=== PATIENT | female | born 1970 | race Caucasian/White ===

== ENCOUNTER 2020-09-21 18:18 | Emergency (ER) | payer BC, SELFPAY ==
[2020-09-21 18:40] VITALS: BP 128/65; PULSE 78; RESP 18; TEMP 36.9; O2SAT 99; BMI 28.6
--- NOTE | 2020-09-21 18:54 | HMH.EDUTC ---
[facility] [place] Clinical Impression: Exposure to COVID-19 virus Disposition: Home, Self-Care Condition on Discharge: Good Instructions: Preventing the Spread of Coronavirus Discharge Instructions Additional Instructions: *Monitor Temp, Over the counter Motrin or Tylenol as directed/as needed Tylenol every 4 hours and Motrin every 6 hours (as long as your family doctor has told you that you can take it) for fever or pain. and straight to ER if unable to lower temp less than 101.0 after medication given *Warm salt water gargles may help to soothe the throat *Throat Lozenges *Warm fluids like tea with honey may help to soothe the throat *Sleep elevated *Humidifier/Vaporizer Follow up IMMEDIATELY for new or worsening symptoms or no Noticeable improvement over the next 48-72 hours. 911 for difficulty breathing or swallowing You was tested for today for COVID19 your test result should be back in the next 24-48 hours, you may call to the [facility] tomorrow to see if your test results are back however could take up to 48 hours before results are back [phone] [facility] hours are 9am-9pm You was given a handout with instructions for Self Quarantine and Self isolation for while you wait on test results and what to do if they are positive If you are positive the Health Dept will be contacting you also Referrals: Hayde Pérez [Primary Care Provider] - As needed Time of Disposition: 18:56 Medical Decision Making - Bg Inquiry Pt receiving controlled substance: No Bg was queried for this patient: No Vital Signs: 09/21/20 18:40 Temperature 98.4 F Temperature Source Oral Pulse Rate [Left Brachial] 78 Respiratory Rate 18 Blood Pressure [Left Arm] 128/65 Blood Pressure Mean [Left Arm] 86 Blood Pressure Source [Left Arm] Automatic Cuff Blood Pressure Position [Left Arm] Sitting 02 Sat by Pulse Oximetry 99 Oxygen Delivery Method Room Air Orders (Tests/Meds): ORDERS Category Date Time Status Covid-19 Nasal PCR Sendout [facility] 09/21/20 18:48 [place] [facility] [place] - General Stated complaint: Covid test Time Seen by Provider: 09/21/20 18:54 Mode of Arrival: Ambulatory Source of Information: Patient Limitations: No Limitations Description of Symptoms (Recalled from Triage Doc. by RN): PATIENT REQUESTING COVID TEST D/T EXPOSURE; DENIES SYMPTOMS HEENT Symptoms (Recalled from RN notes): No Resp Symptoms (Recalled from RN notes): No Skin Symptoms (Recalled from RN notes): No MS Symptoms (Recalled from RN notes): No Functional Status (Recalled from RN notes): WNL - History of Present Illness Provider Complaint: Patient states that she was recently exposed to COVID by family member that just gave to her grandchild and found out today that her COVID test came back and family member was positive for COVID State that they recommended that she come in and get tested - Related Data Allergies Allergy/AdvReac Type Severity Reaction Status Date / Time naproxen [From Aleve] Allergy Verified 09/21/20 18:53 - Worker's Comp Is this a Worker's Comp case?: No [facility] History - Hepatitis A Screen Drug use history?: No High risk sexual behaviors?: No History of sexually transmitted infection?: No Currently employed?: No Childcare worker?: No Do you have indoor plumbing?: Yes Do you have electricity?: Yes Attestation statement:: This patient has been screened for Hepatitis A risk factors. I have reviewed the patient's past medical history: Yes - Social History Alcohol Intake: never Occupational Status: other ROS Obtained: Yes All systems reviewed & no additional complaints, Yes Systems reviewed as appropriate & no additional complaints - Constitutional Constitutional: Reports system reviewed and no additional complaints, except as docu, Denies body ache, Denies chills, Denies fever(s), Denies headache(s) - ENT Ears, Nose, Mouth, and Throat: Reports system reviewed and no additional complaints, exce
[2020-09-21 19:06] VITALS: BP 128/65; PULSE 78; RESP 18; TEMP 36.9; O2SAT 99
[2020-09-23 09:56] LABS: Covid-19 Nasal PCR Sendout Lex NOT DETECTED
== END 2020-09-21 19:07 | disposition home or self-care (01) ==
PROVIDERS: Emergency Provider Nurse Practitioner; PCP Obstetrics & Gynecology Gynecology
DX: Z20.828 Contact with and (suspected) exposure to other viral communicable diseases (principal)
CPT/HCPCS: 99201; U0004

== ENCOUNTER → 2023-01-30 08:36 | Outpatient (POV) | payer BC, SELFPAY | PROVIDERS: Visit Provider Dermatology | DX: Z00.00 Encounter for general adult medical examination without abnormal findings (principal) ==

== ENCOUNTER → 2023-07-13 12:28 | Outpatient (CLI) | payer BC, SELFPAY ==
--- NOTE | 2023-07-13 12:39 | XR_ITS ---
FINAL REPORT CLINICAL HISTORY: foot pain FINDINGS: Left foot Three views were obtained. There is no fracture or dislocation. The joint spaces appear normal. No soft tissue abnormality is identified. There is a cyst in the medial first metatarsal measuring 7 mm. IMPRESSION: Cyst in the medial first metatarsal. Reviewed, Interpreted and Dictated by David Mccallum MD Transcribed by Brandie Zuniga Authenticated and [facility]
--- NOTE | 2023-07-13 12:39 | XR_ITS ---
FINAL REPORT CLINICAL HISTORY: foot pain, pain on lateral side and dorsal surface FINDINGS: Right foot Three views were obtained. There is no fracture or dislocation. The joint spaces appear normal. No soft tissue abnormality is identified. There is a small plantar spur. IMPRESSION: No acute process. Reviewed, Interpreted and Dictated by David Mccallum MD Transcribed by Brandie Zuniga Authenticated and [facility]
== END ==
PROVIDERS: PCP Nurse Practitioner Family; Visit Provider Nurse Practitioner Family
DX: M79.671 Pain in right foot (principal); M79.672 Pain in left foot
CPT/HCPCS: 73630

== ENCOUNTER → 2023-07-26 13:24 | Outpatient (CLI) | payer BC, SELFPAY ==
--- NOTE | 2023-07-26 13:24 | MR_ITS ---
FINAL REPORT CLINICAL HISTORY: foot pain COMPARISON: None FINDINGS: Multiplanar MR imaging of the left foot was performed without contrast. The bony structures are intact without evidence of fracture, bone bruise or marrow edema. There is a presumed subchondral cyst in the head of the first metatarsal. The flexor and extensor tendons are intact. The anterior talofibular ligament is not well seen, and is presumed torn. The musculature is intact. The plantar aponeurosis is intact. There are small tibiotalar and posterior talar joint effusions present. IMPRESSION: Presumed subchondral cyst in the head of the first metatarsal. ATFL is not well seen and presumed torn. Reviewed, Interpreted and Dictated by Luis Miguel Grewal III, MD Transcribed by Lisa Catalan Authenticated and [facility]
== END ==
PROVIDERS: PCP Nurse Practitioner Family; Visit Provider Nurse Practitioner Family
DX: M85.672 Other cyst of bone, left ankle and foot (principal); M79.672 Pain in left foot
CPT/HCPCS: 73718

== ENCOUNTER 2023-08-21 14:56 | Outpatient (RCR) | payer BC, SELFPAY ==
--- NOTE | 2023-08-21 15:58 | HMH.PTOPEV ---
PT Outpatient Evaluation Rehab PT Outpatient Evaluation Start: 08/21/23 15:43 Freq: Status: Active Protocol: Document 08/21/23 15:43 STEVE (Rec: 08/21/23 15:58 STEVE [id number]) E-signed By En Chavez, PT Outpatient Therapy Subjective History Subjective History Pt reports h/o bilateral foot pain for 'years', however, reports increase in s/s over the last couple months. Pt reports right > left medial arch area pain. 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 New diagnosis of cancer in past 12 No months? Chief Complaint Pain,Gives out/Unstable Symptom Type Ache,Dull Symptoms Relieved By Rest/Positioning,Heat Symptoms Aggravated By Standing,Physical Activity, Walking Prior Functional Limitations Housework,Stairs,Balance Current Functional Limitations Housework,Stairs,Balance Symptom Description Constant but Variable Level of pain today (0-10) 5 Pain scale - at its best (0-10) 5 Pain scale - at its worst (0-10) 8 Ankle/Foot Eval Gait Observation General Gait Pattern Observation No Deviations/Normal Assistive Device Ambulation Assistive Device None Palpation Tenderness left Ankle/Foot Palpation Findings Tenderness Ankle/Foot Palpation Overall Comment 2-3/4 medial aspect plantar fascia right Ankle/Foot Palpation Findings Tenderness Ankle/Foot Palpation Overall Comment 3/4 medial plantar fascia, 3/4 plantar fascia insertion ROM left Ankle/Foot Dorsiflexion w/Knee Extended 0-25 Active Range Motion (degrees) Ankle/Foot Plantar Flexion Active Range 0-60 of Motion (degrees) Ankle/Foot Eversion Active Range of 0-20 Motion (degrees) Ankle/Foot Inversion Active Range of 0-60 Motion (degrees) right Ankle/Foot Dorsiflexion w/Knee Extended 0-20 Active Range Motion (degrees) Ankle/Foot Plantar Flexion Active Range 0-65 of Motion (degrees) Ankle/Foot Eversion Active Range of 0-20 Motion (
== END 2023-08-21 14:59 | disposition home or self-care (01) ==
LOC: PT 14:56
PROVIDERS: PCP Nurse Practitioner Family; Visit Provider Podiatrist
DX: Q79.60 Ehlers-Danlos syndrome, unspecified (principal); M79.672 Pain in left foot; M25.375 Other instability, left foot
CPT/HCPCS: 97163

== ENCOUNTER → 2023-09-04 12:22 | Outpatient (CLI) | payer BC, SELFPAY ==
[2023-09-04 13:27] LABS: Anion Gap 11.8 mEq/L (5-15); Blood Urea Nitrogen 11 mg/dl (7-17); Calcium 9.3 mg/dl (8.4-10.2); Carbon Dioxide 27 mmol/L (22.0-30.0); Chloride 106 mmol/L (98-107); Estimated Glomerular Filt Rate 58 ml/min (>60); GFR (African American) 70 ML/MIN (>60); Glucose 101 mg/dl (74-100); Potassium 4.8 mmoL/L (3.5-5.1); Sodium 140 mmol/L (136-145)
== END ==
PROVIDERS: PCP Nurse Practitioner Family; Visit Provider Nurse Practitioner Family
DX: R79.89 Other specified abnormal findings of blood chemistry (principal)
CPT/HCPCS: 36415; 80048

== ENCOUNTER 2023-10-16 13:45 | Outpatient (RCR) | payer BC, SELFPAY ==
--- NOTE | 2023-10-16 15:55 | HMH.PTOPEV ---
PT Outpatient Evaluation Rehab PT Outpatient Evaluation Start: 10/16/23 13:53 Freq: Status: Active Protocol: Document 10/16/23 13:53 [id number] (Rec: 10/16/23 15:52 ARTHUR [id number]) E-signed By Veena Sheldon, PT Outpatient Therapy Subjective History Subjective History Pt is a 53 y/o female who reports chronic B plantar foot pain R>L with worsening of pain at the beginning of this year. Pt denies knpwn trauma or injuries to worsen pain.Pt reports R foot pain is located on the pinky side of the foot , bottom of the foot and the heel. Pt reports the L foot pain is located in the heel with minimal soreness on the bottom of the foot. Pt reports intermittent numbness/ tingling of the right toes. Pt had a L foot MRI on 07/26/23 with impression of Presumed subchondral cyst in the head of the first metatarsal. ATFL is not well seen and presumed torn. Pt reports she had xrays of both feet as well with the right foot showing a small plantar spur. Pt reports pain increases with activity and is also worse with initial steps after being sedentary such as sleeping or sitting for awhile. Pt also reports intermittent pain with stair climbing. Pt reports she wears [employer] shoes most times, denies having insoles in her shoes. Pt's reports she was given ankle braces she wears on uneven ground. Pt reports she was prescribed a compound cream she has used a couple of times without a difference in pain noted. Pt reports she uses a night splint mostly on the right foot when she watches tv at night time. Pt reports she is to return to Dr. Carlos after 3 PT treatment sessions for a follow-up visit. Medical History: Asthma- allergy induced, chronic LBP, DDD, Fibromyalgi, High cholesterol, hx of multiple ankle sprains per pt New diagnosis of cancer in past 12 No months? Chief Complaint Pain,Gives out/Unstable, Paresthesia Symptom Type Ache,Sharp,Stabbing Symptoms Relieved By Rest/Positioning,Brace/Support Symptoms Aggravated By Physical Activity,Walking Prior Functional Limitations None Current Functional Limitations Sleeping,Recreation Activity, Walking,Stairs,Balance Symptom Description Constant but Variable Level of pain today (0-10) 3 Pain scale - at its best (0-10) 3 Pain scale - at its worst (0-10) 8 Ankle/Foot Eval Gait Observation General Gait Pattern Observation No Deviations/Normal Assistive Device Ambulation Assistive Device None Palpation Tenderness bilateral Ankle/Foot Palpation Findings Tenderness Ankle/Foot Palpation Overall Comment PF insertion R>L, L achilles tendon/heel ROM left Ankle/Foot Dorsiflexion w/Knee Extended 15 Active Range Motion (degrees) Ankle/Foot Plantar Flexion Active Range 45 of Motion (degrees) Ankle/Foot Eversion Active Range of 12 Motion (degrees) Ankle/Foot Inversion Active Range of 30 Motion (degrees) right Ankle/Foot Dorsiflexion w/Knee Extended 15 Active Range Motion (degrees) Ankle/Foot Plantar Flexion Active Range 45 of Motion (degrees) Ankle/Foot Eversion Active Range of 10 Motion (degrees) Ankle/Foot Inversion Active Range of 30 Motion (degrees) MMT left Ankle Dorsiflexion Strength Grade 4 Good Ankle Plantarflexion Strength Grade 4 Good Foot Eversion Strength Grade 4 Good Foot Inversion Strength Grade 4 Good right Ankle Dorsiflexion Strength Grade 4 Good Ankle Plantarflexion Strength Grade 4 Good Foot Eversion Strength Grade 4- Good- Foot Inversion Strength Grade 4- Good- Special Tests Talar Tilt Test Negative Right,Positive Left Foot Compression Test Negative Left,Negative Right Foot/Heel Tap/Percussion Test Negative Left,Negative Right Lower Extremity Functional Index Activities Today, do you or would you have any difficulty at all with: a.Any of your usual work, housework or Moderate difficulty school activities b. Your usual hobbies, recreational or Moderate difficulty sporting activities c. Getting into or out of the bath Moderate difficulty d. Walking between rooms Moderate difficulty e. Putting on your shoes or socks A little bit of difficulty f. Squatting Moderate difficulty g. Lifting an object, like a bag of A little bit of difficulty groceries from the floor h. Performing light activities around No difficulty your home i. Performing heavy activities around Moderate difficulty your home j. Getting into or out of a car No difficulty k. Walking 2 blocks No difficulty l. Walking a mile Moderate difficulty m. Going up or down 10 stairs (about 1 Moderate difficulty flight of stairs) n. Standing for 1 hour A little bit of difficulty o. Sitting for 1 hour A little bit of difficulty p. Running on even ground Quite a bit of difficulty q. Running on uneven ground Quite a bit of difficulty r. Making sharp turns while running fast Quite a bit of difficulty s. Hopping Moderate difficulty t. Rolling over in bed A little bit of difficulty LEFI Score Lower Extremity Functional Index Score 48 Outpatient Therapy Assessment Impairments Problems/Impairmments Palpation Tenderness,Impaired Strength,Impaired Walking, Impaired Standing,Impaired Household Care,Impaired Stair Climbing,Impaired Incline Stepping,Impaired Stepping on Uneven Surface,Impaired Balance,Subjective C/O Pain, Impaired Self Care/Self Management Prognosis Rehab Potential Good Clinical Impression Consistent with Diagnosis Yes Short Term Goals Number of Weeks 3 Improve Balance Yes: Tandem stance on stable surface 30 without LOB to dec fall/injury risk Improve LEFI Score Yes: Improve score to 58/80 to improve overall QOL Decrease Subjective C/O Pain Yes: Improve pain at worst to 6/10 to improve overall QOL Improve Self Care/Self Management Yes Patient to be Ind w/ HEP Yes Retirement Goals Number of Weeks 6 Increase Strength Yes: Improve B ankle MMT to 5/ 5 grossly to assist with function Improve Ability to Climb Stairs Yes: 1 flight reciprocally with pain 4/10 or less to assist with home navigation Improve Balance Yes: Tandem stance on unstable surface 30 without LOB to dec fall/injury risk Improve LEFI Score Yes: Improve score to 68/80 to improve overall QOL Decrease Subjective C/O Pain Yes: Improve pain at worst to 4/10 to improve overall QOL Patient to be Ind w/ Advanced HEP Yes Outpatient Therapy Plan of Care Treatment Plan May Include Therapeutic Exercise Including Home Yes Exercise Program Manual Therapy Techniques Yes Neuromuscular Re-education Yes Therapeutic Activities to Return to Yes Previous Functional/Work Level Gait Training Yes ADL/Self Care Education Yes Dry Needling Yes Thermal Modalities Yes Electrical Stimulation Yes Ultrasound/Phonophoresis Yes Iontophoresis Yes Orthotics/Bracing/Splinting Yes Vasopneumatic Compression Pump Yes Massage Yes Eval/Re-Eval Yes Frequency Times per week 2 Duration Number of Weeks 4-6 Addendums This patient is a candidate for social No or vocational rehab? Patient/Guardian verbally acknowledges Yes understanding of treatment program and consents to further treatment? Patient/Guardian verbally acknowledges Yes understanding of diagnosis, prognosis and goals for treatment? Eval Complexity PT Charges 78928 - Low Complexity Shoulder/Elbow Eval Shoulder Objective Measurements Elbow Objective Measurements PHYSICIAN CERTIFICATION: I certify the specified therapy services for Meghna Elsa Bronger are required, authorized, and reviewed every 30 days.
== END 2023-10-16 14:30 | disposition home or self-care (01) ==
LOC: PT 13:45
PROVIDERS: PCP Nurse Practitioner Family; Visit Provider Podiatrist
DX: M25.371 Other instability, right ankle (principal); M25.372 Other instability, left ankle
CPT/HCPCS: 97163

== ENCOUNTER 2023-10-31 08:42 | Outpatient (RCR) | payer BC, SELFPAY ==
--- NOTE | 2023-10-31 10:03 | HMH.PTOPEV ---
PT Outpatient Evaluation Rehab PT Outpatient Evaluation Start: 10/31/23 09:52 Freq: Status: Active Protocol: Document 10/31/23 09:52 STEVE (Rec: 10/31/23 10:03 STEVE [id number]) E-signed By En Chavez, PT Outpatient Therapy Subjective History Subjective History Pt reports h/o chronic LBP with exacerbation over the last ~2 months. Pt reports right and left sided LBP with referred pain into bilateral hips and into groins. Pt reports no radicular s/s below hip level, and reports ' sometimes it feels very unstable in my back.' New diagnosis of cancer in past 12 No months? Chief Complaint Pain,Stiff,Catches/Locks, Weakness Symptom Type Ache,Throb,Dull,Stabbing Symptoms Relieved By Rest/Positioning,Heat, Prescription Meds Symptoms Aggravated By Sitting,Standing,Walking Prior Functional Limitations Housework,Standing,Walking Current Functional Limitations Housework,Standing,Sitting, Walking Symptom Description Constant but Variable Level of pain today (0-10) 3 Pain scale - at its best (0-10) 3 Pain scale - at its worst (0-10) 8 Lumbopelvic Eval Posture Thoracic Spine Posture Standing Position Neutral Lumbar Spine Posture Standing Position Neutral Assistive device Assistive Devices None / NA Gait Observation General Gait Pattern Observation No Deviations/Normal Palapation tenderness bilateral lumbar spinal tenderness Yes: 2/4 paraspinal tenderness Yes: 2-3/4 buttock tenderness Yes: 1-2/4 Lumbar/Sacral Palpation Findings Tenderness Accessory Movement L-spine Vertebrae Accessory Movements Central [employer] [place] that Elicit Symptoms L5 bilateral S1 bilateral Range of Motion Lumbar Spine Active Flexion Range of 0-100 Motion (degrees) Lumbar Spine Active Extension Range of 0-20 Motion (degrees) Left Lumbar Spine Lateral Flexion Active 0-25 Range of Motion (degrees) Right Lumbar Spine Lateral Flexion 0-25 Active Range of Motion (degrees) Lumbar Spine ROM Limitations Soft Tissue Tightness,Pain Manual Muscle Test Bilateral Knee Extension Strength Grade 5 Normal Knee Flexion Strength Grade 5 Normal Hip Flexion Strength Grade 4- Good- Hip Abduction Strength Grade 4 Good Hip Adduction Strength Grade 4 Good Hip External Rotation Strength Grade 3+ Fair+ Hip Internal Rotation Strength Grade 3+ Fair+ Special Tests Hip Scouring (Quadrant) Test Negative Left,Negative Right Hip Queenie Test Negative Left,Negative Right Hip Piriformis Test Negative Left,Negative Right Sacroiliac Joint Compression Test Positive Left,Positive Right Sacroiliac Joint Distraction Test Positive Left,Positive Right Oswestry Index Section 1 Pain Intensity The pain comes and goes and is moderate Section 2 Personal Care (Washing,Dresing) my way of washing or dressing even though it causes some pain Section 3 Lifting I can lift heavy weights, but it gives me extra pain Section 4 Walking I have some pain when walking but it does not increase with distance Section 5 Sitting Pain prevents me from sitting for more than one hour Section 6 Standing I cannot stand more than 1 hour without increasing pain Section 7 Sleeping Because of my pain, my normal night's sleep is less than 6 hours sleep Section 8 Social Life Pain has no significant effect on my social life apart from limiting Section 9 Traveling I get extra pain while traveling which compels me to seek alternate fo Section 10 Changing Degreee of Pain My pain is neither getting better or worse Score and Risk Level Oswestry Sc 19 Oswestry Risk Level Moderate Disability Outpatient Therapy Assessment Impairments Problems/Impairmments Palpation Tenderness,Impaired Range of Motion,Impaired Strength,Impaired Standing, Impaired Sitting,Impaired Household Care,Subjective C/O Pain,Impaired Self Care/Self Management Prognosis Rehab Potential Good Clinical Impression Consistent with Diagnosis Yes Short Term Goals Number of Weeks 4 Decreased Palpation Tenderness Yes: 1-2/4 lumbar,hip mm Increase Range of Motion Yes: LUMBAR AROM WFL Increase Strength Yes: 4/5 B/L LE'S Increase Ability to Stand Yes: 30MIN Increase Ability to Sit Yes: 30MIN Improve Ability For Household Care Yes: 30MIN Improve Oswestry Score Yes: 12-14 Decrease Subjective C/O Pain Yes: 3/10 W/ABOVE ACTIVITIES Patient to be Ind w/ HEP Yes [employer] [place] [employer] Goals Number of Weeks 6-8 Decreased Palpation Tenderness Yes: 0-1/4 B/L HIP, LUMBAR MM Increase Range of Motion Yes: WFL B/L HIP AROM Increase Strength Yes: 4+-5/5 B/L LE'S Increase Ability to Stand Yes: 60MIN Increase Ability to Sit Yes: 60MIN Improve Ability For Household Care Yes: 60MIN Improve Oswestry Score Yes: 5-8 Decrease Subjective C/O Pain Yes: 0-2/10 W/ABOVE ACTIVITIES Patient to be Ind w/ Advanced HEP Yes Outpatient Therapy Plan of Care Treatment Plan May Include Therapeutic Exercise Including Home Yes Exercise Program Manual Therapy Techniques Yes Neuromuscular Re-education Yes Therapeutic Activities to Return to Yes Previous Functional/Work Level ADL/Self Care Education Yes Mechanical Traction Yes Dry Needling Yes Thermal Modalities Yes Electrical Stimulation Yes Ultrasound/Phonophoresis Yes Orthotics/Bracing/Splinting Yes Eval/Re-Eval Yes Frequency Times per week 2-3 Duration Number of Weeks 6-8 Addendums This patient is a candidate for social No or vocational rehab? Patient/Guardian verbally acknowledges Yes understanding of treatment program and consents to further treatment? Patient/Guardian verbally acknowledges Yes understanding of diagnosis, prognosis and goals for treatment? Eval Complexity PT Charges 56890 - Moderate Complexity Shoulder/Elbow Eval Shoulder Objective Measurements Elbow Objective Measurements PHYSICIAN CERTIFICATION: I certify the specified therapy services for Meghna Govea are required, authorized, and reviewed every 30 days.
== END 2023-10-31 09:42 | disposition home or self-care (01) ==
LOC: PT 08:42
PROVIDERS: Visit Provider Nurse Practitioner Family
DX: M54.50 Low back pain, unspecified (principal); M54.42 Lumbago with sciatica, left side
CPT/HCPCS: 97163

== ENCOUNTER 2024-01-04 15:26 | Outpatient (CLI) | payer BC, SELFPAY ==
--- NOTE | 2024-01-04 15:29 | XR_ITS ---
FINAL REPORT CLINICAL HISTORY: Right ankle pain COMPARISON: Right foot 07/13/2023 FINDINGS: RIGHT ANKLE: Three views of the right ankle were obtained. There is no acute fracture or dislocation. The joint spaces and mortise are intact. There is a small plantar calcaneal spur. There is no soft tissue abnormality. IMPRESSION: No acute bony abnormality. Small plantar calcaneal spur. Reviewed, Interpreted and Dictated by Luis Miguel Grewal III, MD Transcribed by Yumiko Coombs Authenticated and [facility]
--- NOTE | 2024-01-04 15:29 | XR_ITS ---
FINAL REPORT CLINICAL HISTORY: Left ankle pain COMPARISON: Left foot 07/13/2023 FINDINGS: LEFT ANKLE: Three views of the left ankle were obtained. There is no acute fracture or dislocation. The joint spaces and mortise are intact. There is a small plantar calcaneal spur. There is no soft tissue abnormality. IMPRESSION: No acute bony abnormality. Small plantar calcaneal spur. Reviewed, Interpreted and Dictated by Luis Miguel Grewal III, MD Transcribed by Yumiko Coombs Authenticated and . [facility]
== END 2024-01-04 23:59 ==
LOC: RAD 15:27
PROVIDERS: PCP Nurse Practitioner Family; Visit Provider Podiatrist
DX: M25.571 Pain in right ankle and joints of right foot (principal); M25.572 Pain in left ankle and joints of left foot
CPT/HCPCS: 73610

== ENCOUNTER 2024-01-07 14:39 | Outpatient (CLI) | payer BC, SELFPAY ==
[2024-01-07 15:23] LABS: Basophils % 0.7 % (0.1-2.0); Eosinophils # 0.1 K/mm3 (0.0-0.4); Eosinophils % 1.7 % (0.1-12.0); Hemoglobin 13.9 g/dL (12.2-16.2); Lymphocytes # 1.8 K/mm3 (0.7-4.5); Lymphocytes % 26.7 % (10-50); Mean Corpuscular HGB Conc 33.1 g/dL (31.8-35.4); Mean Corpuscular Hemoglobin 30.8 pg (27.0-31.2); Mean Corpuscular Volume 93.3 fl (81-99); Mean Platelet Volume 8.2 fl (7.4-10.4); Monocytes # 0.4 K/mm3 (0.1-1.0); Monocytes % 5.3 % (1.7-9.3); Neutrophils # 4.5 K/mm3 (1.8-7.8); Neutrophils % 65.7 % (37.0-80.0); Platelet Count 266 K/mm3 (142-424); Red Blood Count 4.51 M/mm3 (4.20-5.40); Red Cell Distribution Width 13.2 % (11.5-17.5); White Blood Count 6.8 K/mm3 (4.8-10.8)
[2024-01-07 15:50] LABS: Alanine Aminotransferase 27 U/L (12-78); Albumin Level 4.4 g/dl (3.5-5.0); Albumin/Globulin Ratio 1.7 (1.1-1.8); Alkaline Phosphatase 72 U/L (38-126); Anion Gap 10.9 mEq/L (5-15); Aspartate Amino Transferase 33 U/L (14-36); Bilirubin,Total 0.5 mg/dl (0.2-1.3); Blood Urea Nitrogen 13 mg/dl (7-17); Carbon Dioxide 27 mmol/L (22.0-30.0); Chloride 108 mmol/L (98-107); Estimated Glomerular Filt Rate 65 ml/min (>60); GFR (African American) 79 ML/MIN (>60); Globulin 2.6 g/dL (1.3-3.2); Glucose 97 mg/dl (74-100); Potassium 4.9 mmoL/L (3.5-5.1); Sodium 141 mmol/L (136-145); Uric Acid 6.2 mg/dl (2.5-6.2)
[2024-01-07 15:56] LABS: C-Reactive Protein 2.9 mg/L (0-4)
[2024-01-07 16:10] LABS: Erythrocyte Sedimentation Rate 17 mm/hr (0-30)
[2024-01-07 16:56] LABS: Vitamin B12 540 pg/mL (239-931)
[2024-01-07 17:03] LABS: Folate 7.92 ng/mL
[2024-01-08 07:40] LABS: RA Latex Turbid. <10.0 IU/mL (<14.0)
[2024-01-12 12:28] LABS: Antinuclear Antibodies, IFA Positive
[2024-01-12 18:10] LABS: 1,25 Dihydroxy Vitamin D 64 pg/mL (.); 1,25-Dihydroxy, Vitamin D-2 <10 pg/mL (.); 1,25-Dihydroxy, Vitamin D-3 62 pg/mL (.)
== END 2024-01-07 23:59 ==
LOC: LAB 14:40
PROVIDERS: PCP Nurse Practitioner Family; Visit Provider Podiatrist
DX: M79.7 Fibromyalgia (principal); M25.571 Pain in right ankle and joints of right foot; M25.371 Other instability, right ankle; M25.572 Pain in left ankle and joints of left foot; M25.372 Other instability, left ankle; R73.09 Other abnormal glucose; E78.5 Hyperlipidemia, unspecified; Q79.69 Other Ehlers-Danlos syndromes; E66.9 Obesity, unspecified; Z68.30 Body mass index [BMI] 30.0-30.9, adult; Z86.39 Personal history of other endocrine, nutritional and metabolic disease; Z87.891 Personal history of nicotine dependence
CPT/HCPCS: 36415; 80053; 82607; 82652; 82746; 84443; 84550; 85025; 85651; 86038; 86140; 86431

== ENCOUNTER 2024-01-28 12:44 | Outpatient (CLI) | payer BC, SELFPAY ==
--- NOTE | 2024-01-28 12:45 | MR_ITS ---
FINAL REPORT CLINICAL HISTORY: Right ankle pain and instability COMPARISON: None FINDINGS: Multiplanar MR imaging of the right ankle was performed without contrast. There is motion artifact on many of the images decreasing sensitivity of this exam. There is mild degenerative change. The bony structures are intact without evidence of fracture, bone bruise or marrow edema. No osteochondral lesion is identified. The anterior talofibular ligament is not seen and likely torn. The other ligaments appear intact. There is mild posterior tibial and peroneal longus tenosynovitis. There is posterior plantar fasciitis. There are small joint effusions seen. The musculature is intact. There is no evidence of soft tissue mass or cyst. IMPRESSION: Probable tear anterior talofibular ligament. Tenosynovitis. Posterior plantar fasciitis. Small joint effusion. Reviewed, Interpreted and Dictated by Luis Miguel Grewal III, MD Transcribed by Yumiko Coombs Authenticated and [facility]
== END 2024-01-28 23:59 | disposition home or self-care (01) ==
LOC: RAD 12:45
PROVIDERS: PCP Podiatrist; Visit Provider Podiatrist
DX: M25.571 Pain in right ankle and joints of right foot (principal); M25.572 Pain in left ankle and joints of left foot; G89.29 Other chronic pain; M25.371 Other instability, right ankle; M25.372 Other instability, left ankle; Q79.60 Ehlers-Danlos syndrome, unspecified
CPT/HCPCS: 73721

== ENCOUNTER 2024-03-24 13:53 | Emergency (ER) | payer BC, SELFPAY ==
[2024-03-24 14:06] VITALS: BMI 29.9
[2024-03-24 14:20] VITALS: BP 104/60; PULSE 61; RESP 20; TEMP 36.8; O2SAT 100; BMI 29.2
[2024-03-24] MEDS: TET/DIPHTH/PERT-ADULT 0.5ML SYRINGE 0.5 ML IM (14:25)
[2024-03-24 14:35] VITALS: BP 104/60; PULSE 61; RESP 20; TEMP 36.8; O2SAT 100
== END 2024-03-24 14:40 | disposition home or self-care (01) ==
PROVIDERS: Emergency Provider Nurse Practitioner Family; PCP Nurse Practitioner Family
DX: Z23 Encounter for immunization (principal)
CPT/HCPCS: 90471; 90715; 99212; G0463

== ENCOUNTER 2024-03-31 09:09 | Outpatient (CLI) | payer BC, SELFPAY ==
--- NOTE | 2024-03-31 09:13 | XR_ITS ---
FINAL REPORT CLINICAL HISTORY: Lt Knee pain COMPARISON: None FINDINGS: LEFT KNEE: Three views of the left knee were obtained. There is no acute fracture or dislocation. There is mild degenerative change. There is no joint effusion. Soft tissues are unremarkable. IMPRESSION: Mild degenerative change without acute bony abnormality. Reviewed, Interpreted and Dictated by Luis Miguel Grewal III, MD Transcribed by Yumiko Coombs Authenticated and [facility]
--- NOTE | 2024-03-31 09:13 | XR_ITS ---
FINAL REPORT CLINICAL HISTORY: Preoperative testing COMPARISON: none FINDINGS: Two views of the chest were obtained. The heart size and pulmonary vascularity are within normal limits. The mediastinum is normal. No acute pulmonary abnormality is identified. There is no pneumothorax. The bony thorax is intact. IMPRESSION: No active cardiopulmonary disease. Reviewed, Interpreted and Dictated by Luis Miguel Grewal III, MD Transcribed by Yumiko Coombs Authenticated and [facility]
--- NOTE | 2024-03-31 10:41 | ECG_ITS ---
APPROVED REPORT Exam: Resting ECG HR:48 bpm ECG Measurements Heart Rate 48 AXES AK 131 P 41 QRSd 86 QRS 72 QT 417 T 12 QTc 383 Conclusion SINUS BRADYCARDIA BORDERLINE ECG UNCONFIRMED REPORT Electronically signed by : Steve Leach MD 04/02/2024 15:04:09
[2024-03-31 10:44] LABS: Basophils # 0.1 K/mm3 (0-0.2); Basophils % 0.7 % (0.1-2.0); Eosinophils # 0.1 K/mm3 (0.0-0.4); Hematocrit 40.4 % (37.0-47.0); Hemoglobin 13.2 g/dL (12.2-16.2); Lymphocytes # 2.4 K/mm3 (0.7-4.5); Lymphocytes % 33.4 % (10-50); Mean Corpuscular HGB Conc 32.7 g/dL (31.8-35.4); Mean Corpuscular Hemoglobin 30.1 pg (27.0-31.2); Mean Corpuscular Volume 92.1 fl (81-99); Mean Platelet Volume 7.9 fl (7.4-10.4); Monocytes # 0.4 K/mm3 (0.1-1.0); Monocytes % 5.4 % (1.7-9.3); Neutrophils # 4.3 K/mm3 (1.8-7.8); Neutrophils % 58.5 % (37.0-80.0); Platelet Count 273 K/mm3 (142-424); Red Blood Count 4.38 M/mm3 (4.20-5.40); Red Cell Distribution Width 13.4 % (11.5-17.5); White Blood Count 7.3 K/mm3 (4.8-10.8)
[2024-03-31 11:10] LABS: Erythrocyte Sedimentation Rate 13 mm/hr (0-30)
[2024-03-31 11:25] LABS: Alanine Aminotransferase 26 U/L (12-78); Albumin Level 4.2 g/dl (3.5-5.0); Albumin/Globulin Ratio 1.5 (1.1-1.8); Alkaline Phosphatase 68 U/L (38-126); Anion Gap 13.1 mEq/L (5-15); Aspartate Amino Transferase 33 U/L (14-36); Bilirubin,Total 0.4 mg/dl (0.2-1.3); Blood Urea Nitrogen 13 mg/dl (7-17); Calcium 9.9 mg/dl (8.4-10.2); Carbon Dioxide 26 mmol/L (22.0-30.0); Chloride 106 mmol/L (98-107); Estimated Glomerular Filt Rate 65 ml/min (>60); GFR (African American) 79 ML/MIN (>60); Globulin 2.8 g/dL (1.3-3.2); Glucose 98 mg/dl (74-100); Potassium 4.1 mmoL/L (3.5-5.1); Sodium 141 mmol/L (136-145)
[2024-03-31 11:31] LABS: C-Reactive Protein 2.4 mg/L (0-4)
[2024-04-07 22:09] LABS: 1,25 Dihydroxy Vitamin D 83 pg/mL (.); 1,25-Dihydroxy, Vitamin D-2 <10 pg/mL (.); 1,25-Dihydroxy, Vitamin D-3 76 pg/mL (.)
== END 2024-03-31 23:59 | disposition home or self-care (01) ==
LOC: RAD 09:10
PROVIDERS: PCP Nurse Practitioner Family; Visit Provider Podiatrist
DX: Z01.818 Encounter for other preprocedural examination (principal); M25.562 Pain in left knee
CPT/HCPCS: 36415; 71046; 73562; 80053; 82652; 85025; 85651; 86140; 93005

== ENCOUNTER 2024-04-10 11:19 | Day surgery (SDC) | payer BC, SELFPAY ==
[2024-04-10] VITALS (9 sets, daily range): BP systolic 106–130; BP diastolic 63–89; PULSE 66–98; RESP 16–18; TEMP 36.7–43; O2SAT 96–99; BMI 29.2
[2024-04-10] MEDS: 0.9 % SODIUM CHLORIDE 1000ML 1,000 ML 25 ML IV (11:58)
[2024-04-10] MEDS: CEFAZOLIN SODIUM 1 GM in 0.9 % SODIUM CHLORIDE 50 ML IV (13:35)
--- NOTE | 2024-04-10 15:33 | P.PNANES_ITS ---
[facility] Anesthesia Record Part I Anesthesia Record I Intake, IV Amount: 1,500 Hydration: Adequate Estimated blood loss (mL): 5 Urine output (mL): 0 Blood Products used (#): none Blood Pressure: 129/74 SaO2: 98 Pulse Rate: 98 Airway Patency: Patent Respiratory Rate: 16 Temperature: 98.8 F Patient is:: Drowsy and Stable Stable to PACU at:: 15:25
--- NOTE | 2024-04-10 15:41 | XR_ITS ---
FINAL REPORT CLINICAL HISTORY: post-op COMPARISON: 01/04/2024 FINDINGS: Three views show no evidence of acute displaced fracture or dislocation of the visualized bony architecture. The joint spaces appear normal. No acute bony lesion is identified. There is minimal calcaneal spurring. There is no foreign body. IMPRESSION: No acute process. Reviewed, Interpreted and Dictated by Sandy Ashton MD Transcribed by Brandie Zuniga Authenticated and [facility]
[2024-04-10] MEDS: MORPHINE 2MG/ML SYRINGE 2 MG IV (15:42)
[2024-04-10] MEDS: MEPERIDINE 25MG/ML 1ML SYRINGE 25 MG IV (15:44)
--- NOTE | 2024-04-10 15:52 | P.OP_ITS ---
Date of procedure: 04/10/24 Pre-op Diagnosis:: Right ankle instability Right peroneal tenosynovitis Right peroneal tear Right plantar fasciitis Justice-Danlos syndrome Post-op Diagnosis:: Same Procedure performed:: Modified Brostrum repair ATFL, CFL (54981) Ankle arthroscopy with debridement (extensive?55380) Subtalar joint arthroscopy Peroneus longus tendon repair (12924) Peroneus brevis tenosynovectomy (65208) Plantar fasciotomy, arthroscopic Surgeon:: Veronica Carlos DPM TITLE OFFICER:: Isauro Youssef Anesthesia: GETA and regional (R pop, adductor block) Estimated blood loss (mL): 20 Clinical Note:: 53F with Justice Danlos Syndrome who presents with chronic b/l ankle pain and instability over 1.5 years. Conservative care has included: modification of shoe gear, modification of activity, ankle bracing/strapping, RICE protocol, NSAIDs, topical pain cream, flexor patches, formal physical therapy, home stretching, inserts, homeopathic treatments. MRI and x-rays reviewed and show taear of ATFL, tenosynovitis, plantar fasciitis, and small joint effusion. The patient has been instructed on the planned procedure, all risk versus benefits of the procedure discussed. These include but are not limited to: bleeding, infection, nerve and blood vessel damage, need for further surgery, delay in healing of soft tissue or bone, failure of bones to heal, non-union, mal-union, failure of the implant, prolonged pain and recovery, CRPS/RSD, DVT/PE and anesthetic complications including . No guarantees were given. All questions fully answered. The patient verbalized understanding and agreed to proceed with surgery. Written consent was obtained. Operative findings:: Right ankle instability with attenuation of ATFL, CFL. Complete tear of the ATFL. Synovitis noted to the lateral and medial ankle as well as the lateral subtalar joint. Peroneus brevis tenosynovitis appreciated. Peroneus longus had a 2 cm split longitudinal tear. Plantar fasciitis had chronic inflammation and tightness noted. Post repair stable ankle with negative anterior drawer. After peroneal repair, foot set in more neutral position not inverted. Overall foot and ankle had significant synovitis and inflammatory changes consistent with Justice-Danlos and autoimmune disease. Operative note:: On this date and time patient was deemed an appropriate surgical candidate. Pre- op regional nerve block performed by anesthesia. With informed consent signed, the patient was taken to the operating theater. The patient was positioned supine. General anesthesia was induced. Tourniquet was applied to the right thigh. The lower extremity was prepped and draped in normal sterile fashion. IV Ancef given. Right plantar fasciotomy, arthroscopic: Attention was directed to the inferior calcaneus where a small incision was made off the weightbearing surface. Arthroscopic camera was inserted into the incision evaluating the plantar fascia which was thickened and tight consistent with chronic plantar fasciitis. 15 blade was used to transect the medial third of the fascia. There was reduction in the tightness along the plantar foot. Wound flushed with saline. Full- thickness tissue repair. Skin closed with nylon. Right ankle arthroscopy: Next a medial and lateral stab incision was made over the ankle. Full-thickness dissection down to the level of the ankle joint. Camera inserted. The ankle had synovitis and inflammatory changes. Synovitis was debrided with mixture of arthroscopic instruments, cautery, bur and rongeur. Deltoid ligament was intact medially with mild attenuation. No rupture repair warranted. Medial scope portal closed with nylon. Right modified Brostr?m ATFL/CFL repair, STJ arthroscopy: Attention then directed to the lateral ankle where a separate incision was made over the peroneal tendons extending inferior to the fibula. Full-thickness dissection with care to maintain surgical hemostasis to safely retract neurovascular structures. ATFL and CFL were identified and noted to be attenuated. ATFL was torn. Peroneal tendons were identified and later addressed. Peroneal retinaculum was noted to have synovitis which was debrided with a 15 blade and forceps. Wound flushed. A small stab incision was made over the subtalar joint capsule. Through this incision the subtalar joint laterally could be evaluated. A scope camera was inserted laterally and no obvious osteochondral defects or articular cartilage damage noted. In standard technique a 3.5 mm bone anchor was inserted into the distal fibula and the ATFL was repaired. CFL was also repaired with FiberWire. The retinaculum was incorporated into the repair. Post repair, negative anterior ankle drawer. Wound was flushed with saline. Right peroneus brevis tenosynovitis: Incision was lengthened proximally along the course of the peroneal tendons. The brevis tendon was intact with no obvious tears but synovitis which was debrided with 15 blade forceps. Wound flushed with saline. Right peroneus longus tendon debridement and repair: The peroneus longus had 2 areas of marbley thick tissue consistent with prior tear. 15 blade forceps used to debride nonviable thickened tendon which was sent for pathology as a specimen. Next tendon was flushed. 4-0 Vicryl used to reapproximate the inside of the tendon in a running fashion. 4-0 Prolene was used to reapproximate the outside of the tendon in a running baseball fashion. Upon repair the foot was in a more neutral position. A piece of amniotic graft was laid over the repair site to prevent scarring and adhesions to the deep tissue layer. All wounds flushed. Deep tissue reapproximated with Vicryl and skin with nylon. A suture guard was applied at the highest area of tension at the apex of the incision to prevent wound dehiscence. Application of posterior splint: The tourniquet was deflated at 90 minutes and immediate hyperemic response was noted to the digits. The wounds were cleansed. Xeroform, dry sterile dressing was then applied followed by a below knee modified Dunn posterior splint. The patient was awoken from anesthesia and transfer to recovery with vital signs stable and neurovascular status intact. Materials: EnhanCV peek 3.5mm Anchors, [employer] amniotic graft x1 (4x3cm), Shawn-guard x1 Discharge/Plan: Patient is to maintain splint clean dry and intact. Polar pack/ice behind the knee and elevate on foam ramp or two pillows. Non weight bearing with crutches and RKS. e-Rx given for Oxy, Gabapentin, Zofran and Toradol. Obtain post op films, 3 views right ankle. Follow up in one week. Tourniquet time (min): 90 Condition: stable Disposition: same day Specimens:: Right peroneal tendon Complications:: None
[2024-04-11 07:30] VITALS: BP 117/70; PULSE 72; RESP 18; TEMP 37.1; O2SAT 98
--- NOTE | 2024-04-11 07:30 | EXP.ANES.II ---
[facility] Anesthesia Record Part II Anesthesia Record Part II Discharge Time: 15:55 Destination: Surgical Day Care (OP Surgery) PACU nurse assessment reviewed?: Yes Patient Condition:: Good Anesthesia Complications:: None Swallowing reflex intact?: Yes Airway Patency: Patent Cyanosis?: No Blood Pressure: 117/70 SaO2: 98 Respiratory Rate: 18 Pulse Rate: 72 Temperature: 98.8 F Mental Status: Alert & Oriented Pain level:: 0 Nausea and/or vomitting:: None Intake, IV Amount: 0 Hydration: Adequate
== END 2024-04-10 16:33 | disposition home or self-care (01) ==
PROVIDERS: PCP Nurse Practitioner Family; Visit Provider Podiatrist
PROC: (CPT 27696; principal; 2024-04-10 13:00)
DX: M25.371 Other instability, right ankle (principal); M72.2 Plantar fascial fibromatosis; Q79.60 Ehlers-Danlos syndrome, unspecified; M76.71 Peroneal tendinitis, right leg; S93.431A Sprain of tibiofibular ligament of right ankle, initial encounter; S86.311A Strain of muscle(s) and tendon(s) of peroneal muscle group at lower leg level, right leg, initial encounter
CPT/HCPCS: 27696; 29898; 27658; 29893; 73610; C1713; J1885; J2175; J2250; J2270; J2405; J3010; Q4211

== ENCOUNTER 2024-05-19 15:44 | Outpatient (CLI) | payer BC, SELFPAY | END 2024-05-19 23:59 | disposition home or self-care (01) | LOC: LAB.DROPOF 05-20 15:44 | PROVIDERS: PCP Podiatrist; Visit Provider Podiatrist | DX: S91.001A Unspecified open wound, right ankle, initial encounter (principal) | CPT/HCPCS: 87070; 87077; 87186; 87205 ==

== ENCOUNTER 2024-07-09 13:00 | Outpatient (RCR) | payer BC, SELFPAY ==
--- NOTE | 2024-05-19 18:08 | HMH.PTOPEV ---
PT Outpatient Evaluation Rehab PT Outpatient Evaluation Start: 05/19/24 16:58 Freq: Status: Active Protocol: Document 05/19/24 16:58 [email or web address] (Rec: 05/19/24 18:08 ARTHUR [id number]) E-signed By Veena Sheldon, PT Outpatient Therapy Subjective History Subjective History Pt is a 53 y/o female who reports to PT s/p right Modified Brostrum repair, Ankle arthroscopy with debridement, subtalar joint arthroscopy, peroneus longus tendon repair, peroneus brevis tenosynovectomy, plantar fasciotomy, arthroscopic performed 04/10/24. Pt denies complications following surgery with exception of recent wound of the lateral incision following increased activity over the weekend. pt reports she saw her surgeon today who debrided the wound and gave her a cream for it. Pt reports overall she is doing well with minimal soreness of the posterolateral ankle and burning sensation of the lateral incision. Pt reports constant swelling of the ankle, foot and toes that is worse with activity. pt also reports pins/needles sensation with increased swelling. Per MD note, pt is PPWB 75-100% body weight in fx boot over next 1-2 weeks as tolerated. Pt reports she is using bilateral axillary crutches for most ambulation. Pt states she does have a scooter and a walker she uses to get around her home that has multiple steps. Pt reports overall compliance with WB status since surgery. Pt reports she takes Gabapentin at night time to assist with pain and sleep. Pt reports she returns to Dr. Carlos on for her next follow-up session. - Medical History: OA, RA, Justice-Danlos syndrome, Fibromyalgia, Hypoglycemia, Hyperlipidemia, Asthma, Low kidney function R ankle girth figure 8: 53cm, malleoli circumference 26 cm - pitting edema noted of R lateral ankle New diagnosis of cancer in past 12 No months? Chief Complaint Pain,Stiff,Swelling,Weakness Symptom Type Ache,Dull,Burning,Numbness, Tingling Symptoms Relieved By Rest/Positioning,Ice, Prescription Meds,Elevation Symptoms Aggravated By Standing,Physical Activity, Twisting,Walking Prior Functional Limitations None Current Functional Limitations Housework,Driving,Standing, Recreation Activity,Walking, Stairs,Balance Level of pain today (0-10) 3 Pain scale - at its best (0-10) 0 Pain scale - at its worst (0-10) 4 Ankle/Foot Eval Gait Observation General Gait Pattern Observation Decrease Weight Bear (R), Decrease Stride Lngth (R) Assistive Device Ambulation Assistive Device Axillary Crutches Palpation Tenderness right Ankle/Foot Palpation Findings Tenderness Ankle/Foot Palpation Overall Comment 2/4 TTP of lateral malleoli, PF ROM Ankle/Foot Dorsiflexion w/Knee Extended 9 Active Range Motion (degrees) Ankle/Foot Plantar Flexion Active Range 22 of Motion (degrees) Ankle/Foot Eversion Active Range of 7 Motion (degrees) Ankle/Foot Inversion Active Range of 10 Motion (degrees) MMT Ankle Dorsiflexion Strength Grade 4 Good Ankle Plantarflexion Strength Grade 4- Good- Foot Eversion Strength Grade 3+ Fair+ Foot Inversion Strength Grade 4- Good- Lower Extremity Functional Index Activities Today, do you or would you have any difficulty at all with: a.Any of your usual work, housework or Quite a bit of difficulty school activities b. Your usual hobbies, recreational or Quite a bit of difficulty sporting activities c. Getting into or out of the bath Moderate difficulty d. Walking between rooms A little bit of difficulty e. Putting on your shoes or socks A little bit of difficulty f. Squatting Quite a bit of difficulty g. Lifting an object, like a bag of Moderate difficulty groceries from the floor h. Performing light activities around A little bit of difficulty your home i. Performing heavy activities around Quite a bit of difficulty your home j. Getting into or out of a car Moderate difficulty k. Walking 2 blocks Extreme difficulty or unable to perform activity l. Walking a mile Extreme difficulty or unable to perform activity m. Going up or down 10 stairs (about 1 Extreme difficulty or unable flight of stairs) to perform activity n. Standing for 1 hour Extreme difficulty or unable to perform activity o. Sitting for 1 hour Moderate difficulty p. Running on even ground Extreme difficulty or unable to perform activity q. Running on uneven ground Extreme difficulty or unable to perform activity r. Making sharp turns while running fast Extreme difficulty or unable to perform activity s. Hopping Extreme difficulty or unable to perform activity t. Rolling over in bed A little bit of difficulty LEFI Score Lower Extremity Functional Index Score 24 Outpatient Therapy Assessment Impairments Problems/Impairmments Palpation Tenderness,Impaired Range of Motion,Impaired Strength,Impaired Gait Pattern ,Impaired Walking,Impaired Standing,Impaired Driving, Impaired Household Care, Impaired Stair Climbing, Impaired Incline Stepping, Impaired Stepping on Uneven Surface,Impaired Recreational Activities,Impaired Balance, Increased Edema,Wound Care Needs,Subjective C/O Pain, Impaired Self Care/Self Management Prognosis Rehab Potential Good Clinical Impression Consistent with Diagnosis Yes Short Term Goals Number of Weeks 3 Improve LEFI Score Yes: Improve score to at least 34/80 to improve overall Decrease Edema Yes Improve Self Care/Self Management Yes Patient to be Ind w/ HEP Yes Food Safety Specialist Goals Number of Weeks 6 Increase Range of Motion Yes: Improve R ankle AROM to WNL Increase Strength Yes: Improve RLE MMT to 4-4+/5 grossly to assist with function Improve Gait Pattern without Assistive Yes: proper gait mechancis Device wtih LRD to decrease fall risk Improve Ability to Climb Stairs Yes: 1 flight reciprocally to assist with home/community navigation Improve Balance Yes: R SLS firm surface 30 without LOB to decrease fall risk Improve LEFI Score Yes: Improve score to at least 60/80 to improve overall Decrease Edema Yes Decrease Subjective C/O Pain Yes: Improve pain at worst to 1-2/10 to improve overall QOL Outpatient Therapy Plan of Care Treatment Plan May Include Therapeutic Exercise Including Home Yes Exercise Program Manual Therapy Techniques Yes Neuromuscular Re-education Yes Therapeutic Activities to Return to Yes Previous Functional/Work Level Gait Training Yes ADL/Self Care Education Yes Dry Needling Yes Thermal Modalities Yes Electrical Stimulation Yes Ultrasound/Phonophoresis Yes Iontophoresis Yes Orthotics/Bracing/Splinting Yes Vasopneumatic Compression Pump Yes Massage Yes Manual Lymphatic Drainage Yes Wound Care Yes Eval/Re-Eval Yes Frequency Times per week 2-3 Duration Number of Weeks 4-6 Addendums This patient is a candidate for social No or vocational rehab? Patient/Guardian verbally acknowledges Yes understanding of treatment program and consents to further treatment? Patient/Guardian verbally acknowledges Yes understanding of diagnosis, prognosis and goals for treatment? Eval Complexity PT Charges 95814 - Moderate Complexity Shoulder/Elbow Eval Shoulder Objective Measurements Elbow Objective Measurements PHYSICIAN CERTIFICATION: I certify the specified therapy services for Meghna Elsa Bronger are required, authorized, and reviewed every 30 days.
--- NOTE | 2024-06-16 13:29 | HMH.RHREAS ---
Rehab Reassessment Rehab OP Re-assessment Start: 05/19/24 16:58 Freq: Status: Active Protocol: Document 06/16/24 10:07 ARTHUR (Rec: 06/16/24 13:29 ARTHUR [id number]) E-signed By Veena Sheldon PT Lower Extremity Functional Index Activities Today, do you or would you have any difficulty at all with: a.Any of your usual work, housework or Moderate difficulty school activities b. Your usual hobbies, recreational or Quite a bit of difficulty sporting activities c. Getting into or out of the bath No difficulty d. Walking between rooms A little bit of difficulty e. Putting on your shoes or socks No difficulty f. Squatting A little bit of difficulty g. Lifting an object, like a bag of No difficulty groceries from the floor h. Performing light activities around No difficulty your home i. Performing heavy activities around A little bit of difficulty your home j. Getting into or out of a car A little bit of difficulty k. Walking 2 blocks Quite a bit of difficulty l. Walking a mile Quite a bit of difficulty m. Going up or down 10 stairs (about 1 Moderate difficulty flight of stairs) n. Standing for 1 hour Quite a bit of difficulty o. Sitting for 1 hour No difficulty p. Running on even ground Extreme difficulty or unable to perform activity q. Running on uneven ground Extreme difficulty or unable to perform activity r. Making sharp turns while running fast Extreme difficulty or unable to perform activity s. Hopping Extreme difficulty or unable to perform activity t. Rolling over in bed No difficulty LEFI Score Lower Extremity Functional Index Score 44 Rehab Re-assessment Subjective Subjective Pt reports she feels 60-70% improved since starting PT. Pt reports overall pain, swelling and ankle stability have improved. Pt states I still feel some tenderness from where it is still healing . Pt reports she transitioned from the boot to the ankle brace a couple weeks ago. Pt reports she wears the brace for long distance ambulation and does not wear it for household ambulation. Pt reports new onset of heel pain since wearing her ankle brace rated 8/10 at worst with weightbearing activities that improves with rest. Pt reports she was told this is due to scar tissue from her surgery so she has been performing scar tissue massage which helps relieve pain temporarily . Pt reports she returns to Dr Dina Carlos for her next follow- up visit next week. Objective Objective Notes R ankle palpation: 3/ TTP of plantar incisional scar, 1/4 TTP of lateral malleoli R ankle edema: figure 8- 51cm, malleoli circumference- 26cm R ankle AROM: 18 DF, 35 PF, Inv 20, Ev 10 R ankle MMT:DF/PF 4+/5, Inv/Ev 4/5 Gait: mildly antalgic Assessment Progress Assessment Progressing as Expected Assessment Notes Pt has attended 6 PT visits consisting of aerobic exercise , ankle AROM, LE strengthening , gait & balance/ proprioception training and modalities with good tolerance . Pt demonstrated improved R ankle edema, AROM, strength, and LEFS score this date compared to the initial evaluation. Pt continues to demonstrate mildly antaglic gait and reports new onset of pain along the plantar incision. Overall, the pt would continue to benefit from skilled PT to further improve subjective report of pain, ankle AROM/strength, gait, balance and functional activity tolerance to improve overall QOL. Patient goals met ST/4 LT/8 Goals Not Met ROM/strength, gait, LEFS score , p! Revised Goals n/a Plan Plan Continue initial POC Frequency of Therapy 2x/week Duration of therapy 4 more weeks Time and Billing Re-Eval Time 10 Re-Eval Billing Units 1 PHYSICIAN CERTIFICATION: I certify the specified therapy services for Meghna Govea are required, authorized, and reviewed every 30 days.
== END 2024-07-09 23:59 | disposition home or self-care (01) ==
LOC: PT 13:00
PROVIDERS: Visit Provider Podiatrist
DX: M25.571 Pain in right ankle and joints of right foot (principal); M25.572 Pain in left ankle and joints of left foot; M25.371 Other instability, right ankle; M25.372 Other instability, left ankle; G89.29 Other chronic pain; S86.311A Strain of muscle(s) and tendon(s) of peroneal muscle group at lower leg level, right leg, initial encounter; Z98.890 Other specified postprocedural states
CPT/HCPCS: 97110; 97112; 97140; 97163; 97164; 97530

== ENCOUNTER 2024-07-31 14:00 | Outpatient (RCR) | payer BC, SELFPAY ==
--- NOTE | 2024-07-15 11:40 | HMH.PTOPWND ---
Rehab Outpt Wound Evaluation Rehab OP Wound Evaluation Start: 07/15/24 11:31 Freq: Status: Active Protocol: Document 07/15/24 11:31 MARTA (Rec: 07/15/24 11:40 MARTA [id number]) E-signed By Suresh Becerra, PT Subjective/History History History This is the initial PT eval for Meghna Govea, 53 yowf who presents with c/o R lower leg lymphedema S/P ankle surgery performed 04/10/24. She reports edema is worse with walking and standing and decreased with elevation. She reports increased feelings of tightness when edema is increased. She has compression stockings for home use currently. She reports PMH of EDS, hypotension, and RA. Subjective Subjective Current pain is 0/10, at worst pain is 2/10. TTP 1/4 in the lateral R ankle. Edema is minimally pitting at this time , but worse in the area around the incision. New diagnosis of cancer in past 12 No months? Lymphedema Eval Classification of Lymphedema Secondary Lymphedema Yes Post-Surgical Lymphedema Yes Stemmer's sign Stemmer's Sign no Stage of Lymphedema Lymphedema stages Stage I (Pitting edema, reduces w/ elevation, no fibrosis) Skin Changes Dry Skin Yes Redness Yes Other Changes Yes Pain Scale Pain Scale (0-10) 2 Affected Extremities Areas Affected by Lymphedema/Edema Right Lower Extremity Lower Extremity Measurements Right MTP Measurement (cm) 20.6 Heel Measurement (cm) 29.5 10 cm Proximal to Lateral Malleoli 24.4 Measurement (cm) 20 cm Proximal to Lateral Malleoli 33.8 Measurement (cm) 30 cm Proximal to Lateral Malleoli 34.8 Measurement (cm) 40 cm Proximal to Lateral Malleoli 40.5 Measurement (cm) 50 cm Proximal to Lateral Malleoli 0 Measurement (cm) 60 cm Proximal to Lateral Malleoli 0 Measurement (cm) Lower Extremity Measurement Total (cm) 183.6 Manual Lymphatic Drainage Treatment Area MLD Treatment Area Right Lower Extremity Wound Problems/Impairments Impairments Problems/Impairmments Palpation Tenderness,Impaired Endurance,Impaired Walking, Impaired Standing,Increased Edema,Lymphedema Present, Subjective C/O Pain,Impaired Self Care/Self Management Prognosis Rehab Potential Good Comment Skilled therapy is indicated to reduce overall edema burden and return pt to PLOF. Clinical Impression Consistent with Diagnosis Yes Short Term Goals Number of Weeks 2 Decrease Edema Yes: no pitting edema R LE Patient to Understand Lymphedema Yes Treatment and Exercises Decrease Girth Measurments by (cm) Yes: R LE total by 3 cm Care Home Goals Number of Weeks 4 Decreased Palpation Tenderness Yes: 0/4 R lateral ankle Decrease Lymphedema Yes: No fibrotic or post- surgical edema R LE Decrease Subjective C/O Pain Yes: 0/10 at worst R ankle Patient to be Ind w/ HEP Yes Patient to be Ind w/ [place] Yes Compression Garments Patient to Adhere Lymphedema Precautions Yes Decrease Girth Measurments by (cm) Yes: R LE total by 10 cm Outpatient Therapy Plan of Care Treatment Plan May Include Therapeutic Exercise Including Home Yes Exercise Program Manual Therapy Techniques Yes Neuromuscular Re-education Yes Therapeutic Activities to Return to Yes Previous Functional/Work Level ADL/Self Care Education Yes Orthotics/Bracing/Splinting Yes Manual Lymphatic Drainage Yes Eval/Re-Eval Yes Frequency Times per week 2 Duration Number of Weeks 4 Addendums This patient is a candidate for social No or vocational rehab? Patient/Guardian verbally acknowledges Yes understanding of treatment program and consents to further treatment? Patient/Guardian verbally acknowledges Yes understanding of diagnosis, prognosis and goals for treatment? Eval Complexity PT Charges 59064 - High Complexity PHYSICIAN CERTIFICATION: I certify the specified therapy services for Meghna Govea are required, authorized, and reviewed every 30 days.
== END 2024-07-31 23:59 | disposition home or self-care (01) ==
LOC: PT 14:00
PROVIDERS: Visit Provider Podiatrist
DX: R60.9 Edema, unspecified (principal)
CPT/HCPCS: 97140; 97163

== ENCOUNTER 2025-02-05 10:43 | Outpatient (CLI) | payer BC, SELFPAY ==
--- NOTE | 2025-02-05 10:46 | MM_ITS ---
PROCEDURE INFORMATION: Exam: MG Bilateral Screening 3D Mammography Exam date and time: 02/05/2025 10:53 AM Age: 54 years old Clinical indication: Screening. No family history of breast cancer. TECHNIQUE: Imaging protocol: Bilateral Screening tomosynthesis and 2D mammography including computer-aided detection (CAD) when performed. COMPARISON: 1. MG DEANA Procedural Right 09/29/2021 2:26 PM 2. MG Robles Biopsy, RLM 09/29/2021 2:07 PM 3. MG DEANA TOMOSYN DIAGNOSTIC RIGHT 09/08/2021 1:10 PM FINDINGS: MAMMOGRAPHY: Breast composition: There are scattered areas of fibroglandular density. Mass: None. Architectural distortion: None. Calcifications: No suspicious calcifications. Asymmetric density: None. Skin thickening: None. Axillary adenopathy: None. IMPRESSION: No mammographic evidence of malignancy. Annual screening is recommended unless otherwise clinically indicated. ASSESSMENT: BI-RADS Category 1: Negative.
== END 2025-02-05 23:59 | disposition home or self-care (01) ==
LOC: RAD 10:44
PROVIDERS: PCP Nurse Practitioner Family; Visit Provider Nurse Practitioner Family
DX: Z12.31 Encounter for screening mammogram for malignant neoplasm of breast (principal)
CPT/HCPCS: 77063; 77067

== ENCOUNTER 2025-06-26 12:50 | Emergency (ER) | payer BC, SELFPAY ==
[2025-06-26 12:53] VITALS: BP 109/62; PULSE 90; RESP 18; TEMP 37.3; O2SAT 97; BMI 32.3
--- OUTSIDE RECORDS SUMMARY | 2025-06-26 13:07 | XMS_ITS | Clinical Summary ---
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 Phone Unavailable Primary Care Provider Unavailabl e Immunizations Immunization Administration Dates Next Due Hep B, Adolescent or Pediatric 07/22/2012 Hep B, adult 06/03/2012 Influenza, seasonal, injectable 08/10/2014 PPD Skin Test (TB Skin Test) 06/03/2012 Tdap 06/03/2012 Social History Tobacco Use Types Packs/Day Years Used Date Smoking Tobacco: Never Assessed Comments Unknown Sex and Gender Information Value Date Recorded Sex Assigned at Not on file Legal Sex Female 8:42 PM EDT Gender Identity Not on file Sexual Orientation Not on file Last Filed Vital Signs Vital Sign Reading Time Taken Comments Blood Pressure - - Pulse - - Temperature - - Respiratory Rate - - Oxygen Saturation - - Inhaled Oxygen Concentration - - Weight 63.6 kg (140 lb 4 oz) 11/02/2014 11:47 AM EST Height 149.9 cm (4' 11 ) 08/10/2014 11:19 AM EDT Body Mass Index 28.33 08/10/2014 11:19 AM EDT Plan of Treatment Not on file
--- NOTE | 2025-06-26 13:08 | XR_ITS ---
FINAL REPORT CLINICAL HISTORY: short of breath FINDINGS: A portable view of the chest was obtained. Cardiac and mediastinal silhouettes are within normal limits. The lungs are clear. There is no pleural effusion or pneumothorax. IMPRESSION: No acute process on this portable exam. Reviewed, Interpreted and Dictated by April Cheung MD Transcribed by Brandie Zuniga Authenticated and [facility]
--- NOTE | 2025-06-26 13:11 | ED_ITS ---
<Statement entered by Mikel Godinez DO - 06/27/25 07:44> I was consulted by the PADMINI, and we discussed the complexity of problems being addressed. I approved the treatment and management plan for this patient's care in the emergency department, thus performing a substantive portion of the medical decision making. Mikel Godinez DO Discharge Plan Disposition Patient Disposition: Home, Self-Care Condition: Good Prescriptions Prescriptions: New prednisone 20 mg tablet 20 mg PO BID 5 Days Qty: 10 0RF fluconazole 150 mg tablet 150 mg PO DAILY 5 Days Qty: 5 0RF No Action gabapentin 100 mg capsule 100 mg PO TID PRN (Reason: nerve pain) 10 Days Qty: 30 0RF hydroxychloroquine 200 mg tablet PO fluconazole 150 mg tablet 150 mg PO Q3D Qty: 3 0RF gentamicin 0.1 % ointment 1 applic topical TID 14 Days Qty: 30 0RF clindamycin HCl 300 mg capsule 300 mg PO TID 7 Days Qty: 21 0RF Referrals Follow up/Referrals: Idalia Rosa APRN [Primary Care Provider, Medical] - See instructions Activity Restrictions/Add. Instructions Additional Instructions/Restrictions: Use inhaler as needed. Take meds as directed. If any worsening shortness of breath occurs please return to the ED. Clinical Impressions Clinical Impression: Asthma with exacerbation, COVID-19 Instructions Patient Instructions: DI for Asthma -- Adult, COVID-19 Print Language Print Language: Armenian Discharge ED Provider: Mikel Godinez HPI General Chief Complaint: Shortness of Breath/Dyspnea Stated Complaint: SOA-Asthma Time Seen by Provider: 06/26/25 13:03 Mode of Arrival: Ambulatory Source of Information: Patient Description of Symptoms (Recalled from ER Triage Doc. by RN): patient presents to the ED for shortness of breath. [place] does have asthma, patient has not used her inhaler. Stated she didn't want to . History of Present Illness HPI narrative: 54-year-old female presents to the ED today with complaint of shortness of breath. Patient is an asthmatic and started on Sunday with a cough. Sunday was worse and Sunday she made an appointment with her PCP. She was placed on Doxy and she has just gotten worse. She says she does use her inhaler a couple times a day but tries not to because of the thrush that she gets. She says she rinses her mouth but it does not seem to help. She does not have a nebulizer at home. She really does not need 1. Patient is very short of breath. She does have a very low-grade temp here today at 99 2. Related Data Home Medications ?Medication ?Instructions ?Recorded ?Confirmed hydroxychloroquine 200 mg tablet mg PO 05/06/24 Previous Rx's ?Medication ?Instructions ?Recorded gabapentin 100 mg capsule 100 mg PO TID PRN nerve pain 10 04/22/24 days #30 caps fluconazole 150 mg tablet 150 mg PO Q3D 3 doses #3 tab s 05/19/24 gentamicin 0.1 % topical ointment 1 applic topical TID 2 weeks #30 05/19/24 grams clindamycin HCl 300 mg capsule 300 mg PO TID 7 days #2 1 caps 05/22/24 fluconazole 150 mg tablet 150 mg PO DAILY 5 days #5 ta bs 06/26/25 prednisone 20 mg tablet 20 mg PO BID 5 days #10 tabs 06/26/25 Allergies Allergy/AdvReac Type Severity Reaction Status Date / Time naproxen (From Aleve) Allergy Hives Verified 06/10/24 11:48 [facility] Disclaimer: The information contained in this section may have been updated after the patient was seen, as this information can be updated by other users. Medical History Low kidney function Memory changes Vaginal cancer patient states that there were cancerous cells after pap smear, no treatmetn occured Asthma Osteoarthritis Normal colonoscopy Cholecystectomy planned Hypoglycemia Hyperlipidemia Fibromyalgia Surgical History History of surgery on arm History of partial hysterectomy Family History Father Cancer colon Mother Stroke Thyroid disorder Heart disease Dementia Brother Kidney disease kidney failure Cancer Diabetes Brother Heart attack massive heart attack Diabetes Social History Smoking Status: Current every day smoker how long ago did patient quit smokin-5 years ago alcohol intake: never current occupational status: employed Travel in the last 8 weeks?: Outside the continental [place] marital status: Have you lived/traveled outside [place] in past 30 days?: No Contact w/someone who lives/traveled outside US past 30 days?: No Exposure to someone with infectious disease in past 14 days?: No Do you have a fever (greater than 100.4 F or 38 C)?: No Have you tested positive for COVID-19?: No Exposed to someone with COVID-19 in past 14 days?: No Do you have a sore throat?: No Do you have a cough?: No Do you have any weakness?: No Do you have any diarrhea?: No Are you experiencing any unusual bleeding?: No Do you have any muscle aches/pain?: No Do you have any abdominal pain?: No Are you experiencing loss of taste or smell?: No Other Medical History Have you received the Flu Vaccine for this season: No Have you received the Pneumonia Vaccine: No ROS Obtained: Yes Systems reviewed as appropriate & no additional complaints except as documented Constitutional Constitutional: Reports as per HPI Physical Exam General General appearance: alert and in distress Head Head exam: normocephalic Eye Eye exam: Present PERRL and EOMI ENT ENT exam: Present normal oropharynx and mucous membranes moist Neck Neck exam: Present full ROM and trachea midline Respiratory Respiratory exam: Present wheezes and accessory muscle use Cardiovascular Cardiovascular exam: Present regular rate, normal rhythm, normal heart sounds, +S1 and +S2 Extremities Exam Extremities exam: Present normal inspection, full ROM and normal capillary refill Neurological Exam Neurological exam: Present alert, oriented X3 and normal gait Skin Skin exam: Present warm, dry and intact HEART Score HEART Score HEART Score assessment performed?: Yes History (anamnesis): Slightly suspicious ECG: Normal Age: 45-65 years Risk factors: 1-2 risk factors Troponin: </= normal limit HEART Score: 2 Critical Care Critical Care Time Critical Care Time: No Medical Decision Making Bg Inquiry Pt receiving controlled substance: No Bg was queried for this patient: No Vital Signs Vital Signs: 06/26/25 12:53 06/26/25 15:05 06/26/25 15:23 Temperature 99.2 F 98.2 F Temperature Source Temporal Artery Scan Oral Pulse Rate 110 H 107 H Pulse Rate [Right Radial] 90 Respiratory Rate 18 18 Blood Pressure 120/62 129/56 L Blood Pressure [Left Arm] 109/62 L Blood Pressure Mean [Left Arm] 77 Blood Pressure Source Automatic Cuff Blood Pressure Source [Left Arm] Automatic Cuff Blood Pressure Position Sitting Blood Pressure Position [Left Arm] Sitting 02 Sat by Pulse Oximetry 97 96 Oxygen Delivery Method Room Air Room Air Room Air Lab Data Labs: Lab Results 06/26/25 13:29: SARS-CoV-2 (PCR) Detected A, Influenza A Untype (PCR) Not detected, Influenza Type B (PCR) Not detected 06/26/25 13:30: WBC 8.6, RBC 3.73 L, Hgb 11.6 L, Hct 35.8 L, MCV 96.0, MCH 31.1, MCHC 32.4, RDW 12.8, Plt Count 294, MPV 8.9, Neut % (Auto) 72.2, Lymph % (Auto) 15.5, [place] % (Auto) 9.0, Eos % (Auto) 2.9, Baso % (Auto) 0.1, Neut # (Auto) 6.2, Lymph # (Auto) 1.3, [place] # (Auto) 0.8, Eos # (Auto) 0.3, Baso # (Auto) 0.0, Sodium 137, Potassium 4.1, Chloride 106, Carbon Dioxide 26, Anion Gap 9.1, BUN 10, Creatinine 1.00, Estimated Creat Clear 74, Estimated GFR 58 L, Est GFR ( Amer) 70, Glucose 106 H, Calcium 9.4, Magnesium 2.0, Total Bilirubin 0.4, AST 38 H, ALT 23, Alkaline Phosphatase 69, Troponin I < 0.01, Total Protein 7.0, Albumin 3.9, Globulin 3.1, Albumin/Globulin Ratio 1.3, Lipase 57 06/26/25 13:30 06/26/25 13:30 Response Orders (Tests/Meds): ED MEDICATIONS Discontinued Medications Generic Name Dose Route Start Last Admin Trade Name Freq PRN Reason Stop Dose Admin Albuterol/Ipratropium 9 ml 06/26/25 13:08 06/26/25 13:34 Ipratropium/Albuterol 3 Ml Neb IH 06/26/25 13:09 9 ml ONCE ONE Administration Dexamethasone Sodium Phosphate 8 mg 06/26/25 13:08 06/26/25 13:37 Dexamethasone 4mg/Ml 1ml Vial IV 06/26/25 13:09 8 mg ONCE ONE Administration Fluconazole 200 mg 06/26/25 13:15 06/26/25 13:35 Fluconazole 200mg Tablet PO 07/03/25 13:14 200 mg DAILY MILDRED Administration Magnesium Sulfate 2 gm in 50 mls @ 50 mls/hr 06/26/25 13:10 06/26/25 14:36 Magnesium Sulfate 2gm/50ml Premix IV 06/26/25 14:09 Infused ONCE ONE Infusion ORDERS Category Date Time Status Chest XR -- portable [XR chest portable] Stat Exams 06/26/25 13:08 Completed CBC [Complete Blood Count Auto Diff] Stat Lab 06/26/25 13:30 Completed Comprehensive Metabolic Panel Stat Lab 06/26/25 13:30 Completed Lipase Stat Lab 06/26/25 13:30 Completed Magnesium Stat Lab 06/26/25 13:30 Completed Rapid PCR Covid and Flu A/B Stat Lab 06/26/25 13:29 Completed Trop I [Troponin I] Stat Lab 06/26/25 13:30 Completed MDM Narrative Medical Decision Narrative: patient is a 54-year-old female presenting to the emergency department for evaluation of shortness of breath with asthma. Patient is hemodynamically stable and nontoxic-appearing upon arrival, afebrile. Differential diagnosis includes asthma exacerbation, viral illness, among others. Workup will be conducted with hematologic labs, specific imaging. Initial inventions include DuoNebs, steroids. Initial workup reviewed by me hematologic labs are remarkable for positive for COVID. Other labs are nonactionable. Imaging informally interpreted by me and remarkable for nothing acute. Radiology read as nothing acute patient is much improved after breathing treatments x 3, mag, Dex. Patient and I discussed using inhaler and with send Diflucan for the thrush. She is safe for discharge home.
[2025-06-26 13:32] LABS: Influenza A, PCR Not Detected (NotDetected); Influenza B, PCR Not Detected (NotDetected)
[2025-06-26] MEDS: IPRATROPIUM/ALBUTEROL 3 ML NEB 9 ML IH (13:34)
[2025-06-26] MEDS: FLUCONAZOLE 200MG TABLET 200 MG PO (13:35)
[2025-06-26] MEDS: MAGNESIUM SULFATE IN WATER 2 GM/50 ML PIGGYBACK IV (13:36)
[2025-06-26] MEDS: DEXAMETHASONE 4MG/ML 1ML VIAL 8 MG IV (13:37)
[2025-06-26 13:45] LABS: Chloride 106 mmol/L (98-107); Potassium 4.1 mmoL/L (3.5-5.1); Sodium 137 mmol/L (136-145)
[2025-06-26 13:47] LABS: Hematocrit 35.8 % (37.0-47.0); Hemoglobin 11.6 g/dL (12.2-16.2); Immature Granulocytes % 0.3 %; Mean Corpuscular HGB Conc 32.4 g/dL (31.8-35.4); Mean Corpuscular Hemoglobin 31.1 pg (27.0-31.2); Mean Corpuscular Volume 96.0 fl (81-99); Nucleated Red Blood Cells % 0 %; Platelet Count 294 K/mm3 (142-424); Red Blood Count 3.73 M/mm3 (4.20-5.40); Red Cell Distribution Width-SD 44.7 fL; White Blood Count 8.6 K/mm3 (4.8-10.8)
[2025-06-26 13:48] LABS: Alanine Aminotransferase 23 U/L (12-78); Alkaline Phosphatase 69 U/L (38-126); Aspartate Amino Transferase 38 U/L (14-36); Bilirubin,Total 0.4 mg/dl (0.2-1.3); Blood Urea Nitrogen 10 mg/dl (7-17); Calcium 9.4 mg/dl (8.4-10.2); Creatinine Clearance Estimated 74 mL/min (50-200); Creatinine,Serum 1.00 mg/dl (0.52-1.04); Estimated Glomerular Filt Rate 58 ml/min (>60); GFR (African American) 70 ML/MIN (>60); Glucose 106 mg/dl (74-100); Lipase 57 U/L (23-300); Magnesium 2.0 mg/dl (1.6-2.3); Total Protein,Serum 7.0 g/dl (6.3-8.2)
[2025-06-26 14:02] LABS: Coronavirus 19, PCR Detected (NotDetected)
[2025-06-26 14:12] LABS: Troponin I < 0.01 ng/ml (0.00-0.034)
[2025-06-26 15:05] VITALS: BP 120/62; PULSE 110; O2SAT 96
[2025-06-26 15:05] LABS: Albumin Level 3.9 g/dl (3.5-5.0); Albumin/Globulin Ratio 1.3 (1.1-1.8); Anion Gap 9.1 mEq/L (5-15); Carbon Dioxide 26 mmol/L (22.0-30.0); Globulin 3.1 g/dL (1.3-3.2)
[2025-06-26 15:23] VITALS: BP 129/56; PULSE 107; RESP 18; TEMP 36.8; O2SAT 94
== END 2025-06-26 15:24 | disposition home or self-care (01) ==
PROVIDERS: Nurse Practitioner; Emergency Provider Student in an Organized Health Care Education/Training Program; PCP Nurse Practitioner Family
DX: U07.1 COVID-19 (principal); J45.901 Unspecified asthma with (acute) exacerbation; F17.210 Nicotine dependence, cigarettes, uncomplicated
CPT/HCPCS: 71045; 80053; 83690; 83735; 84484; 85025; 87636; 96365; 96375; 99284; J1100; J3475